=== PATIENT | female | born 1940 | race Caucasian/White ===

== ENCOUNTER → 2018-01-11 11:32 | Outpatient (CLI) | payer MEDICARE, SELFPAY ==
--- NOTE | 2018-01-11 | DI.CT.S_ITS ---
PROCEDURE: CT CHEST W CON INDICATIONS: L[place]A LUNG MASS TECHNIQUE: After the administration of intravenous contrast, 5 mm thick sections acquired from the pulmonary apices to the posterior costophrenic angles. 7 mm thick coronal and sagittal MIP reformats were acquired. For radiation dose reduction, the following was used: automated exposure control, adjustment of mA and/or kV according to patient size. COMPARISON: [facility], , CT ABDOMEN/PELVIS WITH CONTRAST, 01/04/2018, 3:18. FINDINGS: Image quality: Excellent. Lungs and pleura: Focal masses present at the left apex which measures 1.4 x 4.6 x 2.5 cm. The surrounding fragment has a tethered appearance suggesting pulmonary scarring. A centrally hypodense, peripherally enhancing mass is present at the left hilum which measures 2.3 x 2.6 x 3.3 cm area in process the appearance of a necrotic xiomara mass. A similar appearing centrally hypodense, peripherally enhancing mass is present within the lingula which measures 3.4 x 3.2 x 4.4 cm. This lesion was partially visualized on a prior CT dated 01/04/18 and is similar in appearance. No other prior chest CTs are available for comparison. Mediastinum: Heart size is normal. No pericardial effusion. No mediastinal or hilar adenopathy by size criteria. Thoracic aorta and central pulmonary arteries are normal in size. Scattered atheromatous calcifications are present within the aortic arch. Esophagus is normal in caliber. No hiatal hernia. Bones and chest wall: No suspicious bony lesions. There are multiple partially healed left inferior lateral rib fractures. No vertebral body compression fractures. No axillary or supraclavicular adenopathy by size criteria. Thyroid gland is unremarkable. Abdomen: Visualized upper abdominal solid organs appear normal. Upper abdominal bowel loops are normal in caliber. IMPRESSION: 1. Air space opacities at the left apex which may represent pulmonary scar, although neoplasm cannot be excluded. Comparison with prior studies would be helpful if available. Additionally, if clinically indicated, this may be amenable to percutaneous CT-guided biopsy. 2. Left hilar mass and left lingular mass suspicious for centrally necrotic neoplasm. If clinically indicated, the lingular mass is likely amenable to percutaneous CT-guided biopsy. Alternatively, PET CT may be helpful to further characterize findings. Dictated by: Jory Griffin M.D. on 01/11/2018 at 12:44 Approved by: Jory Griffin M.D. on 01/11/2018 at 13:01
== END ==
PROVIDERS: Visit Provider Family Medicine
DX: R91.8 Other nonspecific abnormal finding of lung field (principal)
CPT/HCPCS: 71260; Q9967